=== PATIENT | male | born 2000 | race Caucasian/White ===

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

== ENCOUNTER 2021-01-10 20:26 | Emergency (ER) | payer OTHER | END 2021-01-10 21:21 | disposition home or self-care (01) | LOC: FER 20:26 | DX: S50.11XA Contusion of right forearm, initial encounter (principal); S60.211A Contusion of right wrist, initial encounter; W21.89XA Striking against or struck by other sports equipment, initial encounter; Y93.67 Activity, basketball | CPT/HCPCS: 73100 ==